=== PATIENT | female | born 1950 | race Caucasian/White ===

== ENCOUNTER 2018-08-04 12:07 | Day surgery (SDC) | payer BC ==
[~2018-08-04] VITALS: Ht 149.9 cm; Wt 85.2 kg
[2018-08-04 12:49] VITALS: Ht 149.9 cm; Wt 85.2 kg
[2018-08-04 13:55] VITALS: BP 157/87; PULSE 65; RESP 20
[2018-08-04] MEDS ORDERED: ONDANSETRON 4 MG INJ IV PRN (14:00)
[2018-08-04] MEDS ORDERED: FENTAnyl 50 MCG/ML VIAL IV PRN (14:00)
[2018-08-04] MEDS ORDERED: LABETALOL HCL 20MG INJ IV PRN (14:00)
[2018-08-04] MEDS ORDERED: hydrALAzine 20 MG INJ IV PRN (14:00)
[2018-08-04] MEDS ORDERED: EPHEDrine SULFATE 50 MG/5 ML SYG IV PRN (14:00)
--- NOTE | 2018-08-04 14:00 | PREAC ---
Date/Time of Note Date/Time of Note DATE: 08/04/18 TIME: 13:59 Anesthesia Eval and Record Evaluation Time Pre-Procedure Interview DATE: 08/04/18 TIME: 13:59 Age 67 Sex female NPO: 8 hrs Preoperative diagnosis SCREENING Planned procedure COLON Past Medical History Past Medical History: Includes GI: Obesity Surgery & Anesthesia Issues No known issue Meds Anticoagulation: No Beta Avril within 24 hr: No Reason Beta Avril not given: Pt. not on B-Avril Reported Medications [None] No Conflict Check 08/04/18 Meds reviewed: Yes Allergies Coded Allergies: No Known Allergy (Unverified , 08/04/18) Allergies Reviewed: Yes Labs/Studies Labs Reviewed: Reviewed by anesthesiologist test: N/A Pre-procedure Exam Airway: Adequate mouth opening, Adequate thyromental dist Mallampati: Mallampati II Teeth: Normal Lung: Normal Heart: Normal ASA Physical Status ASA physical status: 2 Emergency: None Planned Anesthetic General/MAC: MAC Planned Pain Management Parenteral pain med Pre-operative Attestations Prior to commencing anesthesia and surgery, the patient was re-evaluated, there was verification of: *The patient's identity *The results of appropriate recent lab work and preoperative vital signs *The above evaluation not changing prior to induction *Anesthetic plan, risk benefits, alternative and complications discussed with patient/family; questions answered; patient/family understands, accepts and wishes to proceed. CONCEPCIÓN MUIR Aug 04, 2018 14:00
[2018-08-04] MEDS ORDERED: PROPOFOL 60 ML ONE (14:03)
--- NOTE | 2018-08-04 14:03 | HPN ---
Date/Time of Note Date/Time of Note DATE: 08/04/18 TIME: 14:03 Interval H&P Admission Note Pt. seen H&P reviewed: No system changes ORTEGA DELGADO Aug 04, 2018 14:03
[2018-08-04] MEDS ORDERED: LIDOCAINE 2% (SDV) 5 ML INJ ONE (14:04)
--- NOTE | 2018-08-04 14:24 | PAC ---
Date/Time of Note Date/Time of Note DATE: 08/04/18 TIME: 14:24 Post-Anesthesia Notes Post-Anesthesia Note Last documented vital signs Vital Signs Date Temp Pulse Resp B/P (MAP) Pulse Ox O2 O2 Flow FiO2 Time Delivery Rate 08/04/18 98.0 65 20 157/87 97 Room Air 1423 (110) Activity: WNL Respiratory function: WNL Cardiovascular function: WNL Mental status: Baseline Pain reasonably controlled: Yes Hydration appropriate: Yes Nausea/Vomiting absent: Yes CONCEPCIÓN MUIR Aug 04, 2018 14:24
[2018-08-04 14:44] VITALS: BP 149/66; PULSE 54; RESP 18
== END 2018-08-04 14:55 | disposition home or self-care (01) ==
LOC: GIL 12:07
PROVIDERS: ATTEND Internal Medicine Gastroenterology
DX: Z12.11 Encounter for screening for malignant neoplasm of colon (principal); K64.0 First degree hemorrhoids; K57.30 Diverticulosis of large intestine without perforation or abscess without bleeding; E66.9 Obesity, unspecified; Z68.37 Body mass index [BMI] 37.0-37.9, adult
CPT/HCPCS: 45378; Z7610